=== PATIENT | male | born 1995 | race Caucasian/White ===

== ENCOUNTER 2016-04-10 00:15 | Emergency (ER) | payer MEDICAID, OTHER ==
--- NOTE | 2016-04-10 03:32 | EDDOCDS ---
Physician Documentation [facility] Name: Matti Posey Age: 20 yrs Sex: Male : 1995 Arrival Date: 04/10/2016 Time: 00:15 Bed [facility] Private MD: Disposition: 04/10/16 03:27 Discharged to Home/Self Care. Impression: Acute stress reaction. - Condition is Stable. - Discharge Instructions: Helping Someone Who is Suicidal, Panic Attacks, Self-Destructive Behavior, Anger Management, Panic Attacks, [id number]. - Medication Reconciliation, Local Pharmacy Hours form. - Follow up: Private Physician; When: As needed; Reason: Continuance of care. - Problem is an acute exacerbation. - Symptoms have improved. Historical: - Allergies: no known allergies; - Home Meds: 1. none - PMHx: none; - PSHx: none; - Social history: Smoking status: Patient uses tobacco products, current every day smoker. Patient uses street drugs, marijuana, No barriers to communication noted, The patient speaks fluent Georgian, Speaks appropriately for age. - Family history: Not pertinent. - : The pt / caregiver states he / she is not on anticoagulants. Home medication list is obtained from the patient. - Exposure Risk Screening:: None identified. Vital Signs: 04/10 00:23 BP 144 / 84; Pulse 69; Resp 18; Temp 96.8(O); Pulse Ox 98% ; Weight 75.3 kg / 166.01 mas lbs; Height 6 ft. 0 in. (182.88 cm); Pain 0/10; 00:23 Body Mass Index 22.51 (75.30 kg, 182.88 cm) mas Signatures: Shawn Cordova, DO mm11 Parris oHbbs, RN RN sls1 Sera Mckeon LPN CLINICAL REIMBURSEMENT SPECIALIST sl MTDD
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
--- NOTE | 2016-04-12 04:32 | EDDOCDS ---
Physician Documentation [facility] Name: Matti Posey Age: 20 yrs Sex: Male : 1995 Arrival Date: 04/10/2016 Time: 00:15 Bed [facility] Private MD: Disposition: 04/10/16 03:27 Discharged to Home/Self Care. Impression: Acute stress reaction. - Condition is Stable. - Discharge Instructions: Helping Someone Who is Suicidal, Panic Attacks, Self-Destructive Behavior, Anger Management, Panic Attacks, [id number]. - Medication Reconciliation, Local Pharmacy Hours form. - Follow up: Private Physician; When: As needed; Reason: Continuance of care. - Problem is an acute exacerbation. - Symptoms have improved. Historical: - Allergies: no known allergies; - Home Meds: 1. none - PMHx: none; - PSHx: none; - Social history: Smoking status: Patient uses tobacco products, current every day smoker. Patient uses street drugs, marijuana, No barriers to communication noted, The patient speaks fluent Swedish, Speaks appropriately for age. - Family history: Not pertinent. - : The pt / caregiver states he / she is not on anticoagulants. Home medication list is obtained from the patient. - Exposure Risk Screening:: None identified. Vital Signs: 04/10 00:23 BP 144 / 84; Pulse 69; Resp 18; Temp 96.8(O); Pulse Ox 98% ; Weight 75.3 kg / 166.01 mas lbs; Height 6 ft. 0 in. (182.88 cm); Pain 0/10; 00:23 Body Mass Index 22.51 (75.30 kg, 182.88 cm) mas [facility]: 03:58 Financial registration complete. [facility] 03:58 [facility] Payment Agreement was scanned into [employer] and attached to record. [facility] 14:22 T-Sheet-- Draft Copy was scanned into [employer] and attached to record. gb Signatures: Abbie Muñoz, Reg Reg Shawn Henry DO DO mm11 Parris Hobbs, RN RN sls1 Sera Mckeon LPN LPN Elizabeth Campos [facility] The chart was reviewed and I authenticate all verbal orders and agree with the evaluation and treatment provided.Attachments: 03:58 [facility] Payment Agreement [facility] 14:22 T-Sheet-- Draft Copy gb Chart Complete MTDD
--- NOTE | 2016-04-12 04:33 | EDDOCDS ---
Physician Documentation [facility] Name: Matti Posey Age: 20 yrs Sex: Male : 1995 Arrival Date: 04/10/2016 Time: 00:15 Bed [facility] Private MD: Disposition: 04/10/16 03:27 Discharged to Home/Self Care. Impression: Acute stress reaction. - Condition is Stable. - Discharge Instructions: Helping Someone Who is Suicidal, Panic Attacks, Self-Destructive Behavior, Anger Management, Panic Attacks, [id number]. - Medication Reconciliation, Local Pharmacy Hours form. - Follow up: Private Physician; When: As needed; Reason: Continuance of care. - Problem is an acute exacerbation. - Symptoms have improved. Historical: - Allergies: no known allergies; - Home Meds: 1. none - PMHx: none; - PSHx: none; - Social history: Smoking status: Patient uses tobacco products, current every day smoker. Patient uses street drugs, marijuana, No barriers to communication noted, The patient speaks fluent Turkmen, Speaks appropriately for age. - Family history: Not pertinent. - : The pt / caregiver states he / she is not on anticoagulants. Home medication list is obtained from the patient. - Exposure Risk Screening:: None identified. Vital Signs: 04/10 00:23 BP 144 / 84; Pulse 69; Resp 18; Temp 96.8(O); Pulse Ox 98% ; Weight 75.3 kg / 166.01 mas lbs; Height 6 ft. 0 in. (182.88 cm); Pain 0/10; 00:23 Body Mass Index 22.51 (75.30 kg, 182.88 cm) mas [facility]: 03:58 Financial registration complete. [facility] 03:58 [facility] Payment Agreement was scanned into [employer] and attached to record. [facility] 14:22 T-Sheet-- Draft Copy was scanned into [employer] and attached to record. gb Signatures: Abbie Muñoz, Reg Reg Shawn Henry DO DO mm11 Parris Hobbs, RN RN sls1 Sera Mckeon LPN LPN Elizabeth Campos [facility] The chart was reviewed and I authenticate all verbal orders and agree with the evaluation and treatment provided.Attachments: 03:58 [facility] Payment Agreement [facility] 14:22 T-Sheet-- Draft Copy gb Chart Complete MTDD
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
== END 2016-04-10 03:32 | disposition home or self-care (01) ==
LOC: M ED 00:15
DX: F43.0 Acute stress reaction (principal); F17.200 Nicotine dependence, unspecified, uncomplicated

== ENCOUNTER → 2017-09-09 | Outpatient (REF) | payer OTHER ==
[2017-09-09 18:10] LABS: CHLAMYDIA DNA AMPLIFICATION NEGATIVE (NEGATIVE); GC DNA AMPLIFICATION NEGATIVE (NEGATIVE)
[2017-09-10 10:58] LABS: HIV 1&2 SCREEN CENTAUR NEGATIVE (NEGATIVE)
== END ==
LOC: M LAB REF 16:35
DX: Z11.3 Encounter for screening for infections with a predominantly sexual mode of transmission (principal)

== ENCOUNTER 2017-11-10 11:42 | Emergency (ER) | payer OTHER ==
[2017-11-10 15:59] LABS: CHLAMYDIA DNA AMPLIFICATION NEGATIVE (NEGATIVE); GC DNA AMPLIFICATION NEGATIVE (NEGATIVE)
== END 2017-11-10 13:52 | disposition home or self-care (01) ==
LOC: M ED 11:42
DX: Z20.2 Contact with and (suspected) exposure to infections with a predominantly sexual mode of transmission (principal)
CPT/HCPCS: 87591

== ENCOUNTER → 2018-07-21 | Outpatient (CLI) | payer OTHER ==
[2018-07-21 19:35] LABS: BASO # 0.1 10^3/uL (0.0-0.2); BASO % 0.5 % (0.0-1.0); EOS # 0.4 10^3/uL (0.0-0.50); EOS % 3.8 % (0.0-3.0); HEMATOCRIT 43.4 % (42.0-52.0); HEMOGLOBIN 14.7 g/dl (13.5-17.5); LYMPH # 2.1 10^3/uL (1.5-6.5); LYMPH % 21.2 % (24.0-44.0); MEAN CORPUSCULAR HEMOGLOBIN 31.1 pg (27.0-33.0); MEAN CORPUSCULAR HGB CONC 33.9 g/dl (32.0-36.5); MEAN CORPUSCULAR VOLUME 91.9 fl (80.0-96.0); MONO # 0.8 10^3/uL (0.0-0.8); MONO % 7.7 % (0.0-5.0); NEUTROPHILS # 6.7 10^3/uL (1.8-7.7); NEUTROPHILS % 66.5 % (36.0-66.0); PLATELET COUNT, AUTOMATED 292 10^3/uL (150-450); RED BLOOD COUNT 4.72 10^6/uL (4.30-6.10); WHITE BLOOD COUNT 10.1 10^3/uL (4.0-10.0)
[2018-07-21 19:52] LABS: ALBUMIN 4.6 GM/DL (3.2-5.2); ALT/SGPT 39 U/L (12-78); BILIRUBIN,TOTAL 0.7 MG/DL (0.2-1.0); BLOOD UREA NITROGEN 14 MG/DL (7-18); CALCIUM LEVEL 9.6 MG/DL (8.5-10.1); CARBON DIOXIDE LEVEL 29 MEQ/L (21-32); CHLORIDE LEVEL 103 MEQ/L (98-107); CREATININE FOR GFR 0.53 MG/DL (0.70-1.30); GLOMERULAR FILTRATION RATE > 60.0 (>60); GLUCOSE, FASTING 82 MG/DL (70-100); POTASSIUM SERUM 4.1 MEQ/L (3.5-5.1); SODIUM LEVEL 137 MEQ/L (136-145); TOTAL PROTEIN 8.7 GM/DL (6.4-8.2)
[2018-07-22 10:15] LABS: HEPATITIS B SURFACE ANTIGEN NEGATIVE (NEGATIVE)
[2018-07-22 10:42] LABS: HEPATITIS B CORE ANTIBODY IGM NEGATIVE (NEGATIVE); HEPATITIS C VIRUS ABY INDEX < 0.0 INDEX (<0.8)
[2018-07-22 10:45] LABS: HEPATITIS A ANTIBODY IGM NEGATIVE (NEGATIVE)
== END ==
LOC: M WUC 18:05
PROVIDERS: ATTEND Physician Assistant
DX: Z11.3 Encounter for screening for infections with a predominantly sexual mode of transmission (principal); J01.00 Acute maxillary sinusitis, unspecified

== ENCOUNTER → 2018-07-21 | Outpatient (REF) | payer OTHER | LOC: M LAB REF 19:10 | PROVIDERS: ATTEND Physician Assistant | DX: J02.9 Acute pharyngitis, unspecified (principal) ==

== ENCOUNTER → 2018-07-21 | Outpatient (REF) | payer OTHER ==
[2018-07-21 21:35] LABS: CHLAMYDIA DNA AMPLIFICATION NEGATIVE (NEGATIVE); GC DNA AMPLIFICATION NEGATIVE (NEGATIVE)
== END ==
LOC: M LAB REF 19:11
PROVIDERS: ATTEND Physician Assistant
DX: Z11.3 Encounter for screening for infections with a predominantly sexual mode of transmission (principal)

== ENCOUNTER → 2018-08-02 | Outpatient (REF) | payer OTHER | LOC: M LAB REF 17:09 | PROVIDERS: ATTEND Physician Assistant | DX: J02.9 Acute pharyngitis, unspecified (principal) ==

== ENCOUNTER → 2019-01-26 | Outpatient (REF) | payer OTHER, MEDICAID ==
[2019-01-29 00:06] LABS: HSV IgM TYPES 1&2 <0.91 Ratio (0.00-0.90)
== END ==
LOC: M LAB REF 15:53
PROVIDERS: ATTEND Nurse Practitioner Adult Health
DX: Z20.2 Contact with and (suspected) exposure to infections with a predominantly sexual mode of transmission (principal)

== ENCOUNTER 2020-02-22 21:15 | Emergency (ER) | payer MEDICAID, OTHER ==
[~2020-02-22] VITALS: Ht 182.9 cm; Wt 90.0 kg
[2020-02-22 22:13] LABS: HEMOGLOBIN 12.9 g/dl (13.5-17.5); MEAN CORPUSCULAR HEMOGLOBIN 30.2 pg (27.0-33.0); MEAN CORPUSCULAR HGB CONC 33.1 g/dl (32.0-36.5); MEAN CORPUSCULAR VOLUME 91.3 fl (80.0-96.0); PLATELET COUNT, AUTOMATED 259 10^3/uL (150-450); RED BLOOD COUNT 4.27 10^6/uL (4.30-6.10); WHITE BLOOD COUNT 9.3 10^3/uL (4.0-10.0)
[2020-02-22 22:29] LABS: AMPHETAMINES LEVEL URINE NEGATIVE (NEGATIVE); BARBITURATES URINE NEGATIVE (NEGATIVE); BENZODIAZEPINES URINE NEGATIVE (NEGATIVE); CANNABINOIDS URINE POSITIVE (NEGATIVE); COCAINE METABOLITE URINE NEGATIVE (NEGATIVE); METHADONE URINE NEGATIVE (NEGATIVE); OPIATES URINE NEGATIVE (NEGATIVE); PHENCYCLIDINE URINE NEGATIVE (NEGATIVE)
[2020-02-22 22:44] LABS: ACETAMINOPHEN LEVEL < 2.0 UG/ML (10.0-30.0); ALT/SGPT 20 U/L (12-78); BILIRUBIN,DIRECT 0.1 MG/DL (0.0-0.2); BILIRUBIN,TOTAL 0.3 MG/DL (0.2-1.0); BLOOD UREA NITROGEN 12 MG/DL (7-18); CALCIUM LEVEL 8.9 MG/DL (8.5-10.1); CARBON DIOXIDE LEVEL 27 MEQ/L (21-32); CHLORIDE LEVEL 106 MEQ/L (98-107); CREATININE FOR GFR 0.74 MG/DL (0.70-1.30); ETHYL ALCOHOL (ETHANOL) < 0.003 % (0.000-0.010); GLOMERULAR FILTRATION RATE > 60.0 (>60); GLUCOSE, FASTING 116 MG/DL (70-100); POTASSIUM SERUM 3.5 MEQ/L (3.5-5.1); SALICYLATE LEVEL < 1.7 MG/DL (5.0-30.0); SODIUM LEVEL 139 MEQ/L (136-145); TOTAL PROTEIN 7.5 GM/DL (6.4-8.2)
[2020-02-22 23:01] VITALS: BP 133/90
== END 2020-02-22 23:05 | disposition home or self-care (01) ==
LOC: M ED 21:15
DX: F43.20 Adjustment disorder, unspecified (principal); F12.20 Cannabis dependence, uncomplicated
CPT/HCPCS: 36415; 80048; 80076; 80307; 84443; 85027; 99284; G0480